=== PATIENT | female | born 1950 | race Caucasian/White ===

== ENCOUNTER 2018-04-17 08:46 | Day surgery (SDC) | payer OTHER, BC ==
[2018-04-17] MEDS ORDERED: LIDOCAINE 2% (SDV) 5 ML INJ (11:03)
[2018-04-17] MEDS ORDERED: PROPOFOL 20 ML ×2 (11:03→11:29)
== END 2018-04-17 13:09 | disposition home or self-care (01) ==
LOC: GIL 08:46
DX: Z12.11 Encounter for screening for malignant neoplasm of colon (principal); D12.5 Benign neoplasm of sigmoid colon; K64.8 Other hemorrhoids; E78.5 Hyperlipidemia, unspecified; E03.9 Hypothyroidism, unspecified
CPT/HCPCS: 45380; 88305